=== PATIENT | female | born 1995 | race Caucasian/White ===

== ENCOUNTER 2019-03-15 12:32 | Emergency (ER) | payer MEDICAID ==
[2019-03-15] MEDS: ACETAMINOPHEN 500 MG TAB PO (14:58)
== END 2019-03-15 15:51 | disposition home or self-care (01) ==
LOC: FTE 12:32
DX: R10.2 Pelvic and perineal pain (principal)
CPT/HCPCS: 76856; 81001; 81025; 87591; 99284-25